=== PATIENT | male | born 1995 | race Caucasian/White ===

== ENCOUNTER 2018-08-15 15:56 | Emergency (ER) | payer SELFPAY ==
--- NOTE | 2018-08-15 17:13 | ER ---
Nurse's Notes [facility] Name: Eric Wilks Age: 22 yrs Sex: Male : 1995 Arrival Date: 08/15/2018 Time: 16:00 Bed 24 Private MD: None, None Diagnosis: Acute upper respiratory infection, unspecified Presentation: 08/15 16:16 Presenting complaint: Patient states: Sore throat, congestion, cough, body aches for 4 aj days. Denies fever. Transition of care: patient was not received from another setting of care. Onset of symptoms was August 11, 2018. Risk Assessment: Do you want to hurt yourself or someone else? Patient reports no desire to harm self or others. Initial Sepsis Screen: Does the patient meet any 2 criteria? No. Patient's initial sepsis screen is negative. Does the patient have a suspected source of infection? No. Patient's initial sepsis screen is negative. Care prior to arrival: None. 16:16 Method Of Arrival: Ambulatory 16:16 Acuity: KAYLA 4 aj Triage Assessment: 16:18 General: Appears in no apparent distress. comfortable, Behavior is calm, cooperative, aj appropriate for age. Pain: Complains of pain in body aches. EENT: Reports nasal congestion nasal discharge. Neuro: Level of Consciousness is awake, alert, obeys commands, Oriented to person, place, time, situation, Appropriate for age. Respiratory: Reports cough that is Airway is patent Respiratory effort is even, unlabored, Respiratory pattern is regular, symmetrical. GI: Reports diarrhea. Derm: Skin is intact, is healthy with good turgor, Skin is pink, warm \T\ dry. normal. Historical: - Allergies: 16:18 No Known Allergies; aj - Home Meds: 16:18 None [Active]; aj - PMHx: 16:18 None; aj - PSHx: 16:18 None; aj - Immunization history:: Adult Immunizations up to date. - Social history:: Smoking status: Patient/guardian denies using tobacco. - Ebola Screening: : Patient negative for fever greater than or equal to 101.5 degrees Fahrenheit, and additional compatible Ebola Virus Disease symptoms Patient denies exposure to infectious person Patient denies travel to an Ebola-affected area in the 21 days before illness onset No symptoms or risks identified at this time. Screenin:37 Abuse screen: Denies threats or abuse. Denies injuries from another. Nutritional mg2 screening: No deficits noted. Tuberculosis screening: No symptoms or risk factors identified. Fall Risk None identified. Assessment: 16:37 General: Appears in no apparent distress. comfortable, Behavior is calm, cooperative. mg2 Pain: Complains of pain in throat Pain does not radiate. Pain currently is 3 out of 10 on a pain scale. Quality of pain is described as aching, Pain began gradually, 4 days ago Is intermittent. Neuro: Level of Consciousness is awake, alert, obeys commands, Oriented to person, place, time, situation. Cardiovascular: No deficits noted. Respiratory: Airway is patent Respiratory effort is even, unlabored, Respiratory pattern is regular, symmetrical. GI: No signs and/or symptoms were reported involving the gastrointestinal system. : No signs and/or symptoms were reported regarding the genitourinary system. EENT: Throat is reddened. Derm: Skin is intact, is healthy with good turgor, Skin is pink, warm \T\ dry. normal. Musculoskeletal: No signs and/or symptoms reported regarding the musculoskeletal system. Vital Signs: 16:18 BP 109 / 57; Pulse 67; Resp 16; Temp 98.8; Pulse Ox 98% on R/A; Weight 77.11 kg; Height aj 5 ft. 10 in. (177.80 cm); 17:24 BP 110 / 60; Pulse 69; Resp 18; Pulse Ox 100% on R/A; Pain 0/10; mg2 16:18 Body Mass Index 24.39 (77.11 kg, 177.80 cm) ED Course: 16:00 Patient arrived in ED. mr 16:01 None, None is Private Physician. mr 16:17 Triage completed. aj 16:18 Maisha Enrique FNP-C is [facility]. kb 16:18 Duong Braxton MD is Attending Physician. kb 16:18 Arm band placed on right wrist. Patient placed in an exam room. aj 16:33 Brian Sanchez, EZEQUIEL is Primary Nurse. mg2 16:37 No provider procedures requiring assistance completed. Patient did not have IV access mg2 during this emergency room visit. 16:39 Patient has correct armband on for positive identification. cook pressure on. Pulse mg2 ox on. NIBP on. Administered Medications: No medications were administered Outcome: 17:12 Discharge ordered by . kb 17:24 Discharged to home ambulatory, with family. mg2 17:24 Condition: stable 17:24 Discharge instructions given to patient, family, Instructed on discharge instructions, follow up and referral plans. Demonstrated understanding of instructions, follow-up care. 17:25 Patient left the ED. mg2 Signatures: Maisha Enrique, [employer] LALO-Germaine Okeefe RN RN aj Rivera, Mary mr Gardose, Michele, RN RN mg2
--- NOTE | 2018-08-15 17:13 | EDPHYS ---
Physician Documentation [facility] Name: Eric Wilks Age: 22 yrs Sex: Male : 1995 Arrival Date: 08/15/2018 Time: 16:00 Bed 24 Private MD: None, None ED Physician Duong Braxton HPI: 08/15 16:26 This 22 yrs old Male presents to ER via Ambulatory with complaints of Flu kb Symptoms. 16:26 The patient or guardian reports cough, that is constant, described as mild, with no kb sputum, flu symptoms, myalgias. Onset: The symptoms/episode began/occurred 4 day(s) ago. Severity of symptoms: At their worst the symptoms were moderate, in the emergency department the symptoms are unchanged. Modifying factors: The symptoms are alleviated by nothing, the symptoms are aggravated by nothing. Associated signs and symptoms: Pertinent positives: rhinorrhea, sore throat, Pertinent negatives: chest pain, diarrhea, ear ache, fever, nausea, vomiting. The patient has not experienced similar symptoms in the past. The patient has not recently seen a physician. Historical: - Allergies: 16:18 No Known Allergies; aj - Home Meds: 16:18 None [Active]; aj - PMHx: 16:18 None; aj - PSHx: 16:18 None; aj - Immunization history:: Adult Immunizations up to date. - Social history:: Smoking status: Patient/guardian denies using tobacco. - Ebola Screening: : Patient negative for fever greater than or equal to 101.5 degrees Fahrenheit, and additional compatible Ebola Virus Disease symptoms Patient denies exposure to infectious person Patient denies travel to an Ebola-affected area in the 21 days before illness onset No symptoms or risks identified at this time. ROS: 16:23 Cardiovascular: Negative for chest pain, palpitations, and edema, Abdomen/GI: Negative kb for abdominal pain, nausea, vomiting, diarrhea, and constipation, Back: Negative for injury and pain, MS/Extremity: Negative for injury and deformity, Skin: Negative for injury, rash, and discoloration, Neuro: Negative for headache, weakness, numbness, tingling, and seizure. 16:23 Constitutional: Positive for body aches, malaise, Negative for chills, fatigue, fever, poor PO intake, weight loss. 16:23 ENT: Positive for sinus congestion, sore throat. 16:23 Respiratory: Positive for cough, Negative for dyspnea on exertion, hemoptysis, orthopnea, pleurisy, shortness of breath, sputum production, wheezing. Exam: 16:23 Constitutional: This is a well developed, well nourished patient who is awake, alert, kb and in no acute distress. Head/Face: Normocephalic, atraumatic. ENT: Nares patent. No nasal discharge, no septal abnormalities noted. Tympanic membranes are normal and external auditory canals are clear. Oropharynx with no redness, swelling, or masses, exudates, or evidence of obstruction, uvula midline. Mucous membranes moist. Neck: Trachea midline, no thyromegaly or masses palpated, and no cervical lymphadenopathy. Supple, full range of motion without nuchal rigidity, or vertebral point tenderness. No Meningismus. Chest/axilla: Normal chest wall appearance and motion. Nontender with no deformity. No lesions are appreciated. Cardiovascular: Regular rate and rhythm with a normal S1 and S2. No gallops, murmurs, or rubs. Normal PMI, no JVD. No pulse deficits. Respiratory: Lungs have equal breath sounds bilaterally, clear to auscultation and percussion. No rales, rhonchi or wheezes noted. No increased work of breathing, no retractions or nasal flaring. Abdomen/GI: Soft, non-tender, with normal bowel sounds. No distension or tympany. No guarding or rebound. No evidence of tenderness throughout. Skin: Warm, dry with normal turgor. Normal color with no rashes, no lesions, and no evidence of cellulitis. MS/ Extremity: Pulses equal, no cyanosis. Neurovascular intact. Full, normal range of motion. Neuro: Awake and alert, GCS 15, oriented to person, place, time, and situation. Cranial nerves II-XII grossly intact. Motor strength 5/5 in all extremities. Sensory grossly intact. Cerebellar exam normal. Normal gait. Vital Signs: 16:18 BP 109 / 57; Pulse 67; Resp 16; Temp 98.8; Pulse Ox 98% on R/A; Weight 77.11 kg; Height aj 5 ft. 10 in. (177.80 cm); 17:24 BP 110 / 60; Pulse 69; Resp 18; Pulse Ox 100% on R/A; Pain 0/10; mg2 16:18 Body Mass Index 24.39 (77.11 kg, 177.80 cm) MDM: 16:19 Patient medically screened. kb 16:24 Data reviewed: vital signs, nurses notes. Data interpreted: Pulse oximetry: on room air kb is 98 %. Interpretation: normal. 17:12 Counseling: I had a detailed discussion with the patient and/or guardian regarding: the kb historical points, exam findings, and any diagnostic results supporting the discharge/admit diagnosis, lab results, the need for outpatient follow up, a family practitioner, to return to the emergency department if symptoms worsen or persist or if there are any questions or concerns that arise at home. 08/15 16:19 Order name: Flu; Complete Time: 17:11 kb 08/15 16:19 Order name: Strep; Complete Time: 17:11 kb 08/15 17:13 Order name: Throat Culture EDMS Administered Medications: No medications were administered Disposition: 18:18 Co-signature as Attending Physician, Duong Braxton MD. rn Disposition: 08/15/18 17:12 Discharged to Home. Impression: Acute upper respiratory infection, unspecified. - Condition is Stable. - Discharge Instructions: Upper Respiratory Infection, Adult, [id number]. - Work release form, Medication Reconciliation Form, Thank You Letter, Antibiotic Education, Prescription Opioid Use form. - Follow up: Private Physician; When: 2 - 3 days; Reason: Recheck today's complaints, Continuance of care, Re-evaluation by your physician. Follow up: Emergency Department; When: As needed; Reason: Worsening of condition. Signatures: Dispatcher [employer] EDMaisha Carey, LALO-Andrews OZUNAP-Germaine Okeefe RN Duong Alfaro MD MD rn Gardose, Michele, RN RN mg2 Corrections: (The following items were deleted from the chart) 17:25 17:12 08/15/2018 17:12 Discharged to Home. Impression: Acute upper respiratory mg2 infection, unspecified. Condition is Stable. Forms are Medication Reconciliation Form, Thank You Letter, Antibiotic Education, Prescription Opioid Use. Follow up: Private Physician; When: 2 - 3 days; Reason: Recheck today's complaints, Continuance of care, Re-evaluation by your physician. Follow up: Emergency Department; When: As needed; Reason: Worsening of condition. kb
== END 2018-08-15 17:25 | disposition home or self-care (01) ==
LOC: ER 15:56
DX: J06.9 Acute upper respiratory infection, unspecified (principal)
CPT/HCPCS: 87070; 87081; 87804; 99284